=== PATIENT | female | born 1950 | race Caucasian/White ===

== ENCOUNTER 2023-08-10 20:17 | Inpatient (IN) | payer MEDICARE, BC ==
[2023-08-10] MEDS: diphenhydrAMINE 50 MG/ML SDV IVPUSH ONE (22:06)
[2023-08-10] MEDS: Ketorolac 30 MG/ML SDV IVPUSH ONE (22:06)
[2023-08-10] MEDS: Sodium Chloride 0.9% 1,000 ML IV ONE (22:06)
[2023-08-11] MEDS ORDERED: Docusate Sodium 100 MG Cap PO PRN (00:24)
[2023-08-11] MEDS ORDERED: Meclizine 12.5 MG Tab PO PRN (00:27)
[2023-08-11] MEDS: Meclizine 12.5 MG Tab PO ONE (00:50)
[2023-08-11 06:27] LABS: BASOPHILS PERCENT AUTO 0.2 % (0.0-1.0); EOSINOPHILS PERCENT AUTO 0.2 % (1.0-3.0); HEMATOCRIT 34.2 % (37.0-47.0); HEMOGLOBIN 11.2 g/dL (12.0-16.0); LYMPHOCYTES PERCENT AUTO 37.3 % (20.5-50.1); MEAN CORPUSCULAR HEMOGLOBIN 31.7 pg (27.0-34.0); MEAN CORPUSCULAR HGB CONC 32.7 g/dL (33.0-35.0); MEAN CORPUSCULAR VOLUME 96.9 fL (80-100); MONOCYTES PERCENT AUTO 6.3 % (2-8); PLATELET COUNT,PLT 234 10^3/uL (150-450); RED BLOOD CELL COUNT 3.53 10^6/uL (4.2-5.4); WHITE BLOOD CELL COUNT,WBC 5.7 10^3/uL (5.0-10.0)
[2023-08-11 06:38] LABS: ANION GAP 12.5 mEq/L (7-13); CALCIUM 8.4 mg/dL (8.5-10.1); CREATININE 0.84 mg/dL (0.55-1.02); EST CRCL DRUG DOSING (CG) 58.87 mL/min; POTASSIUM,K 3.5 mmol/L (3.5-5.1)
[2023-08-11] MEDS: Potassium Chloride 10 MEQ Tab.ER PO ONE (07:53)
[2023-08-11] MEDS: Acetaminophen 325 MG Tab PO PRN (08:03)
[2023-08-11] MEDS: Enoxaparin 40 MG/0.4 ML Syringe SUBCUT SCH (08:03)
[2023-08-11] MEDS: Meclizine 12.5 MG Tab PO PRN (08:03)
[2023-08-12] MEDS: Acetaminophen/HYDROcodone 325-5 MG Tab PO PRN (00:15)
[2023-08-12] MEDS: Spironolactone 25 MG Tab PO SCH (08:20)
[2023-08-12] MEDS: Rosuvastatin 10 MG Tab PO SCH ×2 (08:20→21:10)
[2023-08-12] MEDS: Docusate Sodium 100 MG Cap PO SCH (21:10)
[2023-08-13] MEDS: Ondansetron 4 MG/2 ML SDV IVPUSH PRN (05:08)
[2023-08-13] MEDS: Multivitamin Tab PO SCH (08:39)
[2023-08-13] MEDS ORDERED: Non-Formulary Medication 1 Each (Ubidecarenone [Co Q-10] 200 MG Capsule) PO SCH (09:00)
[2023-08-13] MEDS ORDERED: Non-Formulary Medication 1 Each (Fish Oil/Omega-3 Fatty Acids [Fish Oil 1,000 Mg] 1 GM Cap PO SCH (09:00)
== END 2023-08-13 12:45 | disposition home or self-care (01) | DRG 149 ==
LOC: DL.ED 20:17 → DL.MS 22:34 → DL.ED 23:17 → DL.MS 08-11 17:49 → OBSVTOIN 08-12 14:38
PROVIDERS: ADMIT Internal Medicine; ATTEND Internal Medicine
DX: R42 Dizziness and giddiness (principal); H81.10 Benign paroxysmal vertigo, unspecified ear; E87.0 Hyperosmolality and hypernatremia; E78.00 Pure hypercholesterolemia, unspecified; I10 Essential (primary) hypertension; E78.5 Hyperlipidemia, unspecified; H55.00 Unspecified nystagmus; D50.9 Iron deficiency anemia, unspecified; E83.51 Hypocalcemia; R00.1 Bradycardia, unspecified; Z88.0 Allergy status to penicillin; Z79.899 Other long term (current) drug therapy; Z98.890 Other specified postprocedural states; Z87.891 Personal history of nicotine dependence
CPT/HCPCS: 36415 ×2; 70450; 80048; 84484; 85025; 93005; 96374; 96375; 97161; 97165; 97530; 99283; 99285; A9270 ×10; J1200; J1650 ×2; J1885; J3360; J7030; 70547; 70551; 96372; G0378; J2405